=== PATIENT | female | born 1980 | race Caucasian/White ===

== ENCOUNTER 2019-02-24 15:28 | Emergency (ER) | payer MEDICAID, OTHER ==
[2019-02-24 15:58] VITALS: BP 154/100; PULSE 102
[2019-02-24] MEDS ORDERED: Albuterol 0.083% 2.5 MG/3 ML Neb Soln NEB ONE (16:24)
--- NOTE | 2019-02-24 16:34 | EDM.PDOC ---
ED HPI GENERAL MEDICAL PROBLEM - General Chief Complaint: Respiratory Problem Stated Complaint: COUGH AND SORE THROAT Time Seen by Provider: 02/24/19 15:51 Source of Information: Reports: Patient, RN Notes Reviewed History Limitations: Reports: No Limitations - History of Present Illness INITIAL COMMENTS - FREE TEXT/NARRATIVE: Patient is a 38-year-old female who presents to the ED for evaluation of a cough. She notes that she woke up yesterday morning with this cough, but it has developed as such that it makes her entire rib cage hurt, along with her diaphragm. Patient notes that she has some light yellow sputum that she has been coughing up with this. Patient notes she has a history of getting bronchitis, this feels very similar to her other bouts of bronchitis. Patient notes she does have a somewhat sore throat, but notes this is only sore when she coughs. Patient has been using Dobson's cough drops for this, she states that she was able to sleep last night, but does not feel it was restful sleep due to the cough. Patient notes she is not from the area, so she does not have a primary care physician at this time. She does note that she did get a flu shot however. She does smoke, 1 pack/day for 20 to 25 years. She states she uses alcohol rarely, and denies any drug use. She further denies any past medical history other than the bronchitis, or any regular medications that she takes. 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 Albuterol Sulfate [Albuterol Sulfate Hfa] 1 puff IH QID PRN #1 hfa.aer.ad [Rx] Promethazine HCl/Codeine [Prometh-Codein 6.25-10 mg/5 ml] 5 ml PO Q4H PRN #60 ml 02/24/19 [Rx] Past Medical History Respiratory History: Reports: Bronchitis, Recurrent, Pneumonia, Recurrent [employer] 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[employer]ANT History: Reports: - Infectious Disease History Infectious Disease History: Reports: Chicken Pox - Past Surgical History GI Surgical History: Reports: Cholecystectomy Female Surgical History: Reports: Section, Tubal Ligation Other Female Surgeries/Procedures: laparoscopy for ectopic Social & Family History - Family History Family Medical History: Noncontributory - Tobacco Use Smoking Status *Q: Current Every Day Smoker Years of Tobacco use: 20 Packs/Tins Daily: 1 - Caffeine Use Caffeine Use: Reports: Soda - Recreational Drug Use Recreational Drug Use: No - Living Situation & Occupation Living situation: Reports: Single ED ROS GENERAL - Review of Systems Review Of Systems: See Below Constitutional: Denies: Fever, Chills HEENT: Reports: Throat Pain Respiratory: Reports: Wheezing, Cough, Sputum. Denies: Shortness of Breath Cardiovascular: Reports: Chest Pain (chest discomfort d/t coughing.). Denies: Dyspnea on Exertion, Edema GI/Abdominal: Denies: Abdominal Pain, Diarrhea, Nausea, Vomiting Neurological: Denies: Headache ED EXAM, GENERAL - Physical Exam Exam: See Below Exam Limited By: No Limitations General Appearance: Alert, WD/WN, No Apparent Distress Throat/Mouth: Normal Inspection, Normal Lips, Normal Teeth, Normal Gums, Normal Oropharynx, Normal Voice, No Airway Compromise Head: Atraumatic, Normocephalic Neck: Normal Inspection Respiratory/Chest: No Respiratory Distress, No Accessory Muscle Use, Chest Non- Tender, Wheezing (slight wheezing noted to R lung), Other (pt has a deep harsh cough, that does sound loose). No: Rales, Rhonchi Cardiovascular: Normal Peripheral Pulses, Regular Rate, Rhythm, No Murmur Peripheral Pulses: 3+: Radial (L), Radial (R) Extremities: Normal Inspection, Normal Capillary Refill Neurological: Alert, Oriented, Normal Cognition, No Motor/Sensory Deficits Psychiatric: Normal Affect, Normal Mood Skin Exam: Warm, Dry, Intact, Normal Color, No Rash Course - Vital Signs Last Recorded V/S: Last Vital Signs Temp 97.6 F 02/24/19 15:56 Pulse 102 H 02/24/19 15:56 Resp 20 02/24/19 15:56 BP 154/100 H 02/24/19 15:56 Pulse Ox 95 02/24/19 16:44 - Orders/Labs/Meds Orders: Active Orders 24 hr Category Date Time Status RT Aerosol Therapy [RC] ASDIRECTED Care 02/24/19 16:24 Active Chest 2V [CR] Stat Exams 02/24/19 16:24 Taken Meds: Medications Discontinued Medications Generic Name Dose Route Start Last Admin Trade Name Frealejandro PRN Reason Stop Dose Admin Albuterol 2.5 mg 02/24/19 16:24 02/24/19 16:43 Proventil Neb Soln NEB 02/24/19 16:25 2.5 mg ONETIME ONE Administration - Re-Assessments/Exams Free Text/Narrative Re-Assessment/Exam: 02/24/19 16:36 Patient presents to the ED for the evaluation of a cough. Have order chest x- ray to be done, and an albuterol nebulizer due to the patient's wheezing. Patient will most likely be discharged home with general recommendations, some cough medications and albuterol inhaler, she states that this has helped in times past with her bronchitis. 02/24/19 16:53 X-ray is done, and reviewed by myself and Dr. Terry, he pointed out a suspicious area in the right base of her lung, but due to her cough only starting yesterday, I do believe this just to be more of a congestion in nature versus pneumonia and she has not had any fevers or anything. We will treat her with the above plan, and have her follow-up if symptoms change. Departure - Departure Time of Disposition: 16:54 Disposition: Home, Self-Care 01 Condition: Good Clinical Impression: Bronchitis - Discharge Information *PRESCRIPTION DRUG MONITORING PROGRAM REVIEWED*: No *COPY OF PRESCRIPTION DRUG MONITORING REPORT IN PATIENT EVELIA: No Prescriptions: Albuterol Sulfate [Albuterol Sulfate Hfa] 1 puff IH QID PRN #1 hfa.aer.ad PRN Reason: sob/cough Promethazine HCl/Codeine [Prometh-Codein 6.25-10 mg/5 ml] 5 ml PO Q4H PRN #60 ml PRN Reason: Cough Instructions: Steps to Quit Smoking, [id number], Acute Bronchitis, Adult, [id number] Referrals: PCP,None [Primary Care Provider] - Forms: ED Department Discharge Additional Instructions: You have been evaluated in the ED today for your cold like symptoms, cough, sore throat. Your symptoms are consistent with Bronchitis. Your chest x-ray was within normal limits. There was no apparent evidence of pneumonia. Please increase your fluid intake. Get plenty of rest as well. You should feel better in a few days. Recommend that you take some [id number] nasal decongestants, cough/cold remedies to combat this. Medicines like NyQuil, DayQuil, phenylephrine and other sinus decongestants are adequate. You were given a prescription for a strong cough medicine, please take as directed for cough relief. You were also given a prescription for an albuterol inhaler, please take as directed, 1 to 2 puffs every 4 hours as needed for cough /shortness of breath/wheezing. These were electronically prescribed to the pharmacy located by [facility]. If your symptoms are not better in one week's time recommend that you follow up in a clinic or your primary care provider. Our [facility] clinic number is , the [place] clinic is [phone]. Any family practice provider would be able to provide you with the services. Please return to the ED if your symptoms change or worsen. Sepsis Event Note - Evaluation Sepsis Screening Result: No Definite Risk - Focused Exam Vital Signs: Vital Signs Temp Pulse Resp BP Pulse Ox Pulse Ox 02/24/19 16:44 95 02/24/19 15:56 97.6 F 102 H 20 154/100 H 96 Date Exam was Performed: 02/24/19 Time Exam was Performed: 16:58 - My Orders Last 24 Hours: My Active Orders 02/24/19 16:24 RT Aerosol Therapy [RC] ASDIRECTED Chest 2V [CR] Stat - Assessment/Plan Last 24 Hours: My Active Orders 02/24/19 16:24 RT Aerosol Therapy [RC] ASDIRECTED Chest 2V [CR] Stat
--- NOTE | 2019-02-25 07:24 | CR ---
Chest: Two views of the chest were obtained. Comparison: No prior chest x-ray. Heart size and mediastinum are normal. Lungs are clear. Bony structures appear within normal limits. Impression: 1. Nothing acute is appreciated on two-view chest x-ray. Diagnostic code #1 This report was dictated in [place] Standard Time
== END 2019-02-24 17:12 | disposition home or self-care (01) ==
LOC: JD.ED 15:28
DX: J40 Bronchitis, not specified as acute or chronic (principal); F17.210 Nicotine dependence, cigarettes, uncomplicated
CPT/HCPCS: 71046; 71046-26; 94640; 99283; 99283-25

== ENCOUNTER 2024-01-17 22:36 | Emergency (ER) | payer OTHER ==
[2024-01-17] MEDS ORDERED: Sodium Chloride 0.9% 10 ML Syringe FLUSH PRN (22:52)
[2024-01-17 23:43] LABS: APPEARANCE,URINE SLT CLOUDY (Clear); BILIRUBIN,URINE NEGATIVE (Negative); COLOR,URINE RED (Yellow); GLUCOSE,URINE NEGATIVE (Negative); KETONES,URINE NEGATIVE (Negative); LEUKOCYTE ESTERASE,URINE 1+ (Negative); NITRITE,URINE NEGATIVE (Negative); OCCULT BLOOD,URINE 3+ (Negative); PH,URINE 6.5 (5.0-8.0); PROTEIN,URINE 2+ (Negative); UROBILINOGEN,URINE 0.2 (0.2-1.0)
[2024-01-17 23:45] LABS: BASOPHILS PERCENT AUTO 0.4 % (0.0-1.0); EOSINOPHILS ABSOLUTE AUTO 0.1 K/mm3 (0.0-0.4); EOSINOPHILS PERCENT AUTO 1.1 % (0.0-6.0); HEMOGLOBIN 11.9 gm/dl (12.0-16.0); IMMATURE GRAN ABSOLUTE AUTO 0.04 K/mm3 (0.00-0.05); IMMATURE GRAN PERCENT AUTO 0.4 % (0.0-0.4); LYMPHOCYTES ABSOLUTE AUTO 2.7 K/mm3 (1.0-4.8); LYMPHOCYTES PERCENT AUTO 25.7 % (24.0-44.0); MEAN CORPUSCULAR HEMOGLOBIN 23.7 pg (28.0-32.0); MEAN CORPUSCULAR HGB CONC 31.3 g/dl (32.0-36.0); MEAN CORPUSCULAR VOLUME 75.7 fl (83.0-99.0); MEAN PLATELET VOLUME 10.3 fl (9.4-12.3); MONOCYTES ABSOLUTE AUTO 0.7 K/mm3 (0.0-0.8); MONOCYTES PERCENT AUTO 6.7 % (0.0-8.0); NEUTROPHILS PERCENT AUTO 65.7 % (41.0-71.0); PLATELET COUNT,PLT 325 K/mm3 (150-400); RED BLOOD CELL COUNT 5.02 M/mm3 (4.10-5.30); WHITE BLOOD CELL COUNT,WBC 10.68 K/mm3 (3.9-11.3)
[2024-01-18 00:07] LABS: BACTERIA,URINE FEW /hpf (FEW); MUCUS,URINE NOT SEEN /hpf (FEW); RBC,URINE >100 /hpf (0-5)
[2024-01-18 01:10] LABS: ALANINE AMINOTRANSFERASE,ALT 18 U/L (14-59); ALBUMIN 3.5 g/dl (3.4-5.0); ALKALINE PHOSPHATASE 69 U/L (46-116); ANION GAP 11.5 (5-15); ASPARTATE AMNIOTRANSFERASE,AST 11 U/L (15-37); BILIRUBIN TOTAL 0.2 mg/dL (0.2-1.0); BLOOD UREA NITROGEN,BUN 10 mg/dL (7-18); BUN/CREATININE RATIO 14.3 (14-18); CALCIUM 8.7 mg/dL (8.5-10.1); CARBON DIOXIDE,CO2 24 mEq/L (21-32); CHLORIDE,CL 106 mEq/L (98-107); CREATININE 0.7 mg/dL (0.55-1.02); EST CRCL DRUG DOSING (CG) 91.32 mL/min; ESTIMATED GFR 109 mL/min (>60); GLUCOSE RANDOM 103 mg/dL (70-99); LIPASE 17 U/L (16-77); MAGNESIUM 1.9 mg/dL (1.8-2.4); POTASSIUM,K 3.5 mEq/L (3.5-5.1); PROTEIN TOTAL,TP 6.9 g/dl (6.4-8.2); SODIUM,NA 138 mEq/L (136-145)
[2024-01-18 01:15] LABS: TROPONIN I HIGH SENSITIVITY < 4 pg/mL (<=51)
[2024-01-18 04:05] VITALS: BP 143/81; PULSE 87
[2024-01-18 04:13] LABS: TSH 37.632 uIU/mL (0.358-3.74)
[2024-01-18 04:19] LABS: T4 FREE 0.73 ng/dL (0.76-1.46)
== END 2024-01-18 03:40 | disposition home or self-care (01) ==
LOC: JD.ED 22:36
DX: R42 Dizziness and giddiness (principal); I10 Essential (primary) hypertension; D64.9 Anemia, unspecified; E03.9 Hypothyroidism, unspecified; Z79.899 Other long term (current) drug therapy
CPT/HCPCS: 36415; 71045; 71045-26; 80053; 81001; 83605; 83690; 83735; 84439; 84443; 84484; 84703; 85025; 87086; 93005; 93010; 99284; 99285